=== PATIENT | male | born 1960 | race Hispanic/Latino ===

== ENCOUNTER → 2020-04-15 | Day surgery (SDC) | payer OTHER ==
[~2020-04-15] MED LIST: ATORVASTATIN CA10 MG PO; FENTANYL CITRATE/PF 100MCG/2 ML INJ ONE; GLUCAGON FOR INJ 1 MG VIAL ONE; HYDROCHLOROTHIA25 MG PO; HYOSCYAMINE 0.125 MG TAB ONE; LIDOCAINE HCL 2% LOCAL INJ 5 ML SDV VIAL INJ ONE; LISINOPRIL10 MG PO; MIDAZOLAM HCL 2 MG/2 ML VIAL ONE; PROPOFOL IV EMULSION 10 MG/ML 20 ML VIAL ONE
--- OUTSIDE RECORDS SUMMARY | 2020-04-15 10:41 | XMS REPORT ---
Author Author [facility] t Organization [facility] Address [address] [place] [address] Phone Unavailable Care Team Providers Care Store Stocker Name Role Phone Unavailable Unavailable Payers Payer Name Policy Type Policy Number Effective Date Expiration Date S ource Problems This patient has no known problems. Allergies, Adverse Reactions, Alerts Allergy Name Allergy Type Status Severity Reaction(s) Onset Date Inacti ve Date Treating Clinician Comments Source No Known Allergies DA Active U 2019-05-02 00:00:00 [facility] Medications This patient has no known medications. Procedures This patient has no known procedures. Results Test Description Test Time Test Comments Results Result Comments Source BASIC METABOLIC PANEL 2019-05-03 13:13:00 Test Item SODIUM (test code = NA) 142 mmol/L 134-147 N POTASSIUM (test code = K) 4.3 mmol/L 3.4-5.0 N CHLORIDE (test code = CL) 99 mmol/L 100-108 L CARBON DIOXIDE (test code = CO2) 39 mmol/L 21-32 H ANION GAP (test code = GAP) 4.0 GAP calc 4.0-15.0 N GLUCOSE (test code = GLU) 150 MG/DL 70-110 H BLOOD UREA NITROGEN (test code = BUN) 20 MG/DL 7-18 H GLOMERULAR FILTRATION RATE (test code = GFR) >=60 max estimate estG FR >60 CREATININE (test code = CREAT) 0.9 MG/DL 0.8-1.3 N CALCIUM (test code = CA) 8.7 MG/DL 8.5-10.1 N LIPID PROFILE (CORONARY RISK)2019-05-03 13:13:00* Test Item Value Reference Range Interpretation Comments TRIGLYCERIDES (test code = TRIG) 61 MG/DL 0-150 N CHOLESTEROL (test code = CHOL) 130 MG/DL 133-200 L CHOLESTEROL/HDL RATIO (test code = CHOLHDL) 3.42 RATIO >0 HDL CHOLESTEROL (test code = HDL) 38 MG/DL 40-59 L NON-HDL CHOLESTEROL (test code = NHDL) 92 mg/dL <130 LIPOPROTEIN LDL (test code = LDL) 88 MG/DL 0-129 N LDL/HDL (test code = LDL/HDL) 2.31 Ratio 1.48-3.22 Avg N VITAMIN [id number] 13:13:00* Test Item Value Reference Range Interpretation Comments VITAMIN B12 (test code = VITB12) 691 PG/ML 183-986 N FOLIC [id number] 13:13:00* Test Item Value Reference Range Interpretation Comments FOLIC ACID (test code = FOL) 8.00 NG/ML 3.10-17.50 N T4 [id number] 13:13:00* Test Item Value Reference Range Interpretation Comments T4 FREE (test code = T4F) 0.88 NG/DL 0.89-1.76 L THYROID STIMULATING [id number] 13:13:00* Test Item Value Reference Range Interpretation Comments THYROID STIMULATING HORMONE (test code = TSH) 0.642 mcIU/ML 0.340-4 .820 N BASIC METABOLIC [id number] 11:56:00* Test Item Value Reference Range Interpretation Comments SODIUM (test code = NA) 142 mmol/L 134-147 N POTASSIUM (test code = K) 4.3 mmol/L 3.4-5.0 N CHLORIDE (test code = CL) 99 mmol/L 100-108 L CARBON DIOXIDE (test code = CO2) 39 mmol/L 21-32 H ANION GAP (test code = GAP) 4.0 GAP calc 4.0-15.0 N GLUCOSE (test code = GLU) 150 MG/DL 70-110 H BLOOD UREA NITROGEN (test code = BUN) 20 MG/DL 7-18 H GLOMERULAR FILTRATION RATE (test code = GFR) estGFR >60 CREATININE (test code = CREAT) MG/DL 0.8-1.3 CALCIUM (test code = CA) 8.7 MG/DL 8.5-10.1 N LIPID PROFILE (CORONARY RISK)2019-05-03 11:56:00* Test Item Value Reference Range Interpretation Comments TRIGLYCERIDES (test code = TRIG) MG/DL 0-150 CHOLESTEROL (test code = CHOL) MG/DL 133-200 CHOLESTEROL/HDL RATIO (test code = CHOLHDL) RATIO >0 HDL CHOLESTEROL (test code = HDL) MG/DL 40-59 NON-HDL CHOLESTEROL (test code = NHDL) mg/dL <130 LIPOPROTEIN LDL (test code = LDL) MG/DL 0-129 LDL/HDL (test code = LDL/HDL) Ratio 1.48-3.22 Avg VITAMIN [id number] 11:56:00* Test Item Value Reference Range Interpretation Comments VITAMIN B12 (test code = VITB12) PG/ML 183-986 FOLIC [id number] 11:56:00* Test Item Value Reference Range Interpretation Comments FOLIC ACID (test code = FOL) NG/ML 3.10-17.50 T4 [id number] 11:56:00* Test Item Value Reference Range Interpretation Comments T4 FREE (test code = T4F) NG/DL 0.89-1.76 THYROID STIMULATING [id number] 11:56:00* Test Item Value Reference Range Interpretation Comments THYROID STIMULATING HORMONE (test code = TSH) mcIU/ML 0.340-4. 820 GLYCOSYLATED HEMOGLOBIN [id number] 11:35:00* Test Item Value Reference Range Interpretation Comments GLYCOSYLATED HEMOGLOBIN (HA1C) (test code = GLYHGB) 5.4 % A1C 4. 2-6.3 N ESTIMATED AVERAGE GLUCOSE (test code = EAG) 108 MG/DLest CBC W/AUTO [id number] 10:50:00* Test Item Value Reference Range Interpretation Comments WHITE BLOOD CELL (test code = WBC) 16.4 K/mm3 3.5-11.0 H RED BLOOD CELL (test code = RBC) 5.44 M/mm3 4.70-6.10 N HEMOGLOBIN (test code = HGB) 16.7 G/DL 12.3-15.9 H HEMATOCRIT (test code = HCT) 55.3 % 35.8-46.7 H MEAN CELL VOLUME (test code = MCV) 101.7 Fl 86.3-98.9 H MEAN CELL HGB (test code = MCH) 30.7 pg 28.9-34.4 N MEAN CELL HGB CONCETRATION (test code = MCHC) 30.2 G/DL 32.1-34. 5 L RED CELL DISTRIBUTION WIDTH (test code = RDW) 18.3 SD 11.5-14. 5 H PLATELET COUNT (test code = PLT) 118.0 K/mm3 150-450 L MEAN PLATELET VOLUME (test code = MPV) 11.70 fL 7.0-9.6 H NEUTROPHIL % (test code = NT%) 91.4 % 40-76 H LYMPHOCYTE % (test code = LY%) 3.8 % 20.5-51.1 L MONOCYTE % (test code = MO%) 4.6 % 1.7-9.3 N EOSINOPHIL % (test code = EO%) 0.1 % 0.0-6.0 N BASOPHIL % (test code = BA%) 0.1 % 0.0-2.0 N NEUTROPHIL # (test code = NT#) 14.96 K/mm3 1.8-7.6 H LYMPHOCYTE # (test code = LY#) 0.6 K/mm3 0.6-3.0 N MONOCYTE # (test code = MO#) 0.8 K/mm3 0.2-1.5 N EOSINOPHIL # (test code = EO#) 0.0 K/mm3 0.0-0.4 N BASOPHIL # (test code = BA#) 0.0 K/mm3 0.0-0.2 N MANUAL DIFF REQUIRED (test code = MDIFF) NO DIFF/SCN CRITERIA [id number] 20:51:00* Test Item Value Reference Range Interpretation Comments TROPONIN-I (test code = TROPI) < 0.015 NG/ML 0.000-0.045 N Negative: </= 0.045 Positive: >/= 0.046 Correlation with serial results, other cardiac markers, and clinical findings is necessary to determine the clinical significance of this result. Quantitative results using different methodologies should not be compared to one another as numerical results may varyby method. Completed by Nursing: JANNET SOTO [id number] 19:40:00 Name: MAXINE CANSECOAD [facility] ED : 1960 Age/S: 58 / M [address] [facility] [place] Unit #: [id number] Loc: [place] [address] Phys: Karen Remy MD Acct: [id number] Di s Date: Status: ADM IN PHONE #: Exam Date: 05/02/20191914 FAX #: Reason: R/O DVT EXAMS: CPT: [id number] DUP VEIN MANNY 13986 C3 TIME OF STUDY: 05/02/2019 6:01 PM REASON FOR EXAM: R/O DVT COMPARISON: None. TECHNIQUE: Doppler, mc-scale and color-flow imaging of the bilateral lower extremity venous system was performed. FINDINGS: The common femoral vein, superficial femoral vein, profunda femoris, and popliteal veins are normal in appearance. The vessels show normal compressibility, color flow and doppler augmentation. The de ep calf veins demonstrate no distinct intraluminal thrombus. IM PRESSION: 1. No evidence of deep venous thrombosis. Negative venous Doppler of the bilateral lower extremity. Electronic ally Signed by Yolette Trejo on 05/02/2019 at 1940 Rep orted and signed by: Jose Trejo M.D. CC: Corey Abad MD ; Sandra Remy MD Technologist: Joyce Stone RDMS Trnscb Date/Time: 05/02/2019 (1939) [email or web address] PAGE 1 Signed Report Name: LOVE CANSECOJENNIFER MAURICE Harper : 1960 Age/S: 58 / M [address] [address] [place] Unit #: [id number] Loc: [place] [address] Phys: Sandra Remy MD Acct: [id number] Dis Date: Status: ADM IN PHONE #: [phone] Exam Date: 05/02/20191914 FAX #: Reason: R/O DVT EXAMS: CPT: [id number] DU P VEIN MANNY [address] <Continued> Orig Print D/T: S: 05/02/2019 (1942) Probe: PAGE 2 Signed Report - CTA CHEST FOR [id number] 17:49:00 Name: HARLEENJAY MAURICE Harper : 1960 Age/S: 58 / M [address] [address] [place] Unit #: [id number] Loc: [place] [address] Phys: Sandra Remy MD Acct: [id number] Dis Date: Status: ADM IN PHONE #: [phone] Exam Date: 05/02/20191732 FAX #: Reason: SOB EXAMS: CPT: [id number] [place] [address] Site ID: [id number] EXAMINATION: CTA chest. Technique: Axial images with coronal and sagittal reconstructions with MIP technique are performed of chest with angiogram protocol. 100 mL of Isovue-300 administered intravenously. One or more of the following radiation dose reduction techniques was used: automated exposure control, adjustment of mA and/or KV according to patient size, and/or utilization of iterative reconstruction technique. HISTORY: SOB. COMPARISON: None. FIN DINGS: The pulmonary arteries are well-opacified with no Baptiste made of str eak artifacts and mild breathing motion which could obscure a subtle abnormality. There is a filling defect involving the posterior segment of the right lower lobe compatible with pulmonary embolism. No other defin ite segmental or subsegmental emboli are seen. The lobar and main pulmona ry arteries are better evaluated and demonstrate no pulmonary embolism. T he thoracic aorta is normal in caliber. The heart size is normal. No eff usion or pneumothorax. There is a borderline size 1 cm infracarina l lymph nodes. No significantly enlarged mediastinal, hilar or axillary l ymph nodes are seen otherwise. 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 No herniation of the stomach is seen. The lungs demonstrate minimal dependent atelectasis with no significant consolidati on, mass or suspicious nodule. There is minimal perihilar septal thickeni ng could relate to slight vascular congestion. The osseous s tructures appear grossly unremarkable. IMPRESSION: 1. S mall pulmonary focal embolism involving the posterior segment of the rig ht lower lobe. The central pulmonary arteries are patent. PAGE 1 Signed Report (CONTINUED) Name: LOVE CANSECOTEJINDER MARCUM [facility] Rosario : 1960 Age/S: 58 / M [address] [address] [place] Unit #: [id number] Loc: [place] [address] Phys: Sandra Remy MD Acct: [id number] Dis Date: Status: ADM IN PHONE #: [phone] Exam D ate: 05/02/2019 1733 FAX #: Reason: SOB EXAMS: CPT: [id number] [place] [address] <Continued> 2. Minimal septal thickening in the lungs mid zone may relate to slight vascular congestion. The findings were discussed with Shannan, the nurse taking care of the patient at 5:45 PM. at 1749 Reported and signed by: Adriel Montejo MD CC: Corey Abad MD; Sandra Remy MD Technologist:MICHELLE MARTIN, RT(R)(CT)(MR) CTDI: DLP: Trnscb Date/Time: 05/02/2019 (1749) [email or web address] Orig Print D/T: S: 05/02/2019 (7732) PAGE 2 Signed Report [id number] 17:18:00* Test Item Value Reference Range Interpretation Comments TROPONIN-I (test code = TROPI) < 0.015 NG/ML 0.000-0.045 N Negative: </= 0.045 Positive: >/= 0.046 Correlation with serial results, other cardiac markers, and clinical findings is necessary to determine the clinical significance of this result. Quantitative results using different methodologies should not be compared to one another as numerical results may varyby method. Completed by Nursing: [id number] 15:12:00* Test Item Value Reference Range Interpretation Comments ARTERIAL BLOOD GAS PH (test code = PHA) 7.38 pH units 7.35-7.45 N ARTERIAL BLOOD GAS PCO2 (test code = PCO2A) 62 mmHg 35-45 H ARTERIAL BLOOD GAS PO2 (test code = PO2A) 98 mmHg 80-100 N BICARBONATE TOTAL HCO3 (test code = HCO3) 35.6 mmol/L 22.0-26.0 H BASE EXCESS (test code = RADHA) 7.7 mmol/L -3.0-3.0 H ABG O2 SATURATION (test code = SATA) 98 % 90-100 N FIO2 (test code = FIO2A) 35 % e 21-100 N ABG VENT MODE (test code = MODEA) Nasal Cannula Descript Vent Mode ABG SITE (test code = SITEA) Left Radial ARTKIT DESCRIPTION MODIFIED JEAN CLAUDE'S (test code = MODALL) Yes Circ.CHK POSITIVE TOTAL HGB (test code = THB) 17.0 GRAM/DL 12.0-18.0 N HGB O2 SAT (test code = HBOSAT) 93.9 % (miracle) 95.0-100.0 L CARBOXYHEMOGLOBIN (test code = HOHGBT) 3.1 % 0.5-1.5 H METHEMOGLOBIN (test code = METHGB) 0.7 % 0.0-0.0 H COMPREHENSIVE METABOLIC [id number] 14:08:00* Test Item Value Reference Range Interpretation Comments SODIUM (test code = NA) 143 mmol/L 134-147 N POTASSIUM (test code = K) 3.7 mmol/L 3.4-5.0 N CHLORIDE (test code = CL) 102 mmol/L 100-108 N CARBON DIOXIDE (test code = CO2) 38 mmol/L 21-32 H ANION GAP (test code = GAP) 3.0 GAP calc 4.0-15.0 L GLUCOSE (test code = GLU) 123 MG/DL 70-110 H BLOOD UREA NITROGEN (test code = BUN) 20 MG/DL 7-18 H GLOMERULAR FILTRATION RATE (test code = GFR) >=60 max estimate estG FR >60 CREATININE (test code = CREAT) 0.9 MG/DL 0.8-1.3 N TOTAL PROTEIN (test code = PROT) 7.8 G/DL 6.4-8.2 N ALBUMIN (test code = ALB) 3.3 G/DL 3.4-5.0 L GLOBULIN (test code = GLOB) 4.5 GM/dL ALBUMIN/GLOBULIN RATIO (test code = A/G) 0.7 RATIO 1.2-2.2 L CALCIUM (test code = CA) 8.6 MG/DL 8.5-10.1 N BILIRUBIN TOTAL (test code = BILT) 1.50 MG/DL 0.2-1.2 H SGOT/AST (test code = AST) 23 Unit/L 15-37 N SGPT/ALT (test code = ALT) 41 Unit/L 12-78 N ALKALINE PHOSPHATASE TOTAL (test code = ALKP) 76 Unit/L 50-136 N Completed by Nursing: NONT PRO-BRAIN NATRIURETIC [id number] 14:08:00* Test Item Value Reference Range Interpretation Comments NT PRO-BRAIN NATRIURETIC PEPTI (test code = PROBNP) 217 PG/ML 0- 100 H Completed by Nursing: [id number] 14:08:00* Test Item Value Reference Range Interpretation Comments TROPONIN-I (test code = TROPI) < 0.015 NG/ML 0.000-0.045 N Negative: </= 0.045 Positive: >/= 0.046 Correlation with serial results, other cardiac markers, and clinical findings is necessary to determine the clinical significance of this result. Quantitative results using different methodologies should not be compared to one another as numerical results may varyby method. Completed by Nursing: NOCOMPREHENSIVE METABOLIC [id number] 14:00:00* Test Item Value Reference Range Interpretation Comments SODIUM (test code = NA) 143 mmol/L 134-147 N POTASSIUM (test code = K) 3.7 mmol/L 3.4-5.0 N CHLORIDE (test code = CL) 102 mmol/L 100-108 N CARBON DIOXIDE (test code = CO2) 38 mmol/L 21-32 H ANION GAP (test code = GAP) 3.0 GAP calc 4.0-15.0 L GLUCOSE (test code = GLU) 123 MG/DL 70-110 H BLOOD UREA NITROGEN (test code = BUN) 20 MG/DL 7-18 H GLOMERULAR FILTRATION RATE (test code = GFR) estGFR >60 CREATININE (test code = CREAT) MG/DL 0.8-1.3 TOTAL PROTEIN (test code = PROT) G/DL 6.4-8.2 ALBUMIN (test code = ALB) G/DL 3.4-5.0 GLOBULIN (test code = GLOB) GM/dL ALBUMIN/GLOBULIN RATIO (test code = A/G) RATIO 1.2-2.2 CALCIUM (test code = CA) 8.6 MG/DL 8.5-10.1 N BILIRUBIN TOTAL (test code = BILT) MG/DL 0.2-1.2 SGOT/AST (test code = AST) Unit/L 15-37 SGPT/ALT (test code = ALT) Unit/L 12-78 ALKALINE PHOSPHATASE TOTAL (test code = ALKP) Unit/L 50-136 Completed by Nursing: NONT PRO-BRAIN NATRIURETIC [id number] 14:00:00* Test Item Value Reference Range Interpretation Comments NT PRO-BRAIN NATRIURETIC PEPTI (test code = PROBNP) PG/ML 0- 100 Completed by Nursing: [id number] 14:00:00* Test Item Value Reference Range Interpretation Comments TROPONIN-I (test code = TROPI) NG/ML 0.000-0.045 Completed by Nursing: NOCBC W/AUTO [id number] 13:51:00* Test Item Value Reference Range Interpretation Comments WHITE BLOOD CELL (test code = WBC) 8.4 K/mm3 3.5-11.0 N RED BLOOD CELL (test code = RBC) 5.28 M/mm3 4.70-6.10 N HEMOGLOBIN (test code = HGB) 16.1 G/DL 12.3-15.9 H HEMATOCRIT (test code = HCT) 51.9 % 35.8-46.7 H MEAN CELL VOLUME (test code = MCV) 98.3 Fl 86.3-98.9 N MEAN CELL HGB (test code = MCH) 30.5 pg 28.9-34.4 N MEAN CELL HGB CONCETRATION (test code = MCHC) 31.0 G/DL 32.1-34. 5 L RED CELL DISTRIBUTION WIDTH (test code = RDW) 18.0 SD 11.5-14. 5 H PLATELET COUNT (test code = PLT) 91.0 K/mm3 150-450 L MEAN PLATELET VOLUME (test code = MPV) 10.40 fL 7.0-9.6 H NEUTROPHIL % (test code = NT%) 82.6 % 40-76 H LYMPHOCYTE % (test code = LY%) 8.5 % 20.5-51.1 L MONOCYTE % (test code = MO%) 6.3 % 1.7-9.3 N EOSINOPHIL % (test code = EO%) 2.2 % 0.0-6.0 N BASOPHIL % (test code = BA%) 0.4 % 0.0-2.0 N NEUTROPHIL # (test code = NT#) 6.91 K/mm3 1.8-7.6 N LYMPHOCYTE # (test code = LY#) 0.7 K/mm3 0.6-3.0 N MONOCYTE # (test code = MO#) 0.5 K/mm3 0.2-1.5 N EOSINOPHIL # (test code = EO#) 0.2 K/mm3 0.0-0.4 N BASOPHIL # (test code = BA#) 0.0 K/mm3 0.0-0.2 N MANUAL DIFF REQUIRED (test code = TREVOR) NO DIFF/SCN CRITERIA - XR CHEST 2 [id number] 13:22:00 Name: JAY CANSECO [facility] ED : 1960 Age/S: 58 / M [address] [address] [place] Unit #: [id number] Loc: [place] [address] Phys: Santiago Ying MD Acct: [id number] Dis Date: Status: PRE ER PHONE #: [phone] Exam Date: 05/02/2019 1312 FAX #: Reason: cough for 3 weeks EXAMS: CPT: [id number] XR CHEST 2 V 98895 Fluoro Time: DAP (Gy m2): Air Kerma (mGy): EXAM: - XR CHEST 2 V HISTORY: cough for 3 weeks Location code:C3 COMPARISON: None available time of interpretation. FINDINGS: 2 PA and lateral view of the chest is provided. The cardiac silhouette and pulmonary vasculature are mildly engorged. The lungs are clear of focal consolidation. No effusion, pneumothorax, or acute osseous abnormality. IMPRESSION: The cardiac silhouette and pulmonary vasculature are mildly engorged. at 1322 Reported and signed by: Nito Vergara MD CC: Santiago Ying MD PAGE 1 Signed Report Name: JAY CANSECO [facility] ED : 1 12/15/1959 Age/S: 58 / M [address] [address] [place] Unit #: [id number] Loc: [place] [address] Phys: Santiago Ying MD Acct: [id number] Dis D ate: Status: PRE ER PHONE #: Exam Date: 05/02/2019 1312 FAX #: Reason: cough for 3 weeks EXAMS: CPT: [id number] XR CHEST 2 V 91066 Fluoro Time: DAP (Gy m2): Air Kerma (mGy): <Continued> Technologist: Paola Almodovar RT(R) Trnscb Date/Time: 05/02/2019 (1322) [id number] Orig Print D/T: S: 05/02/2019 (8559) PAGE 2 Signed Report
--- NOTE | 2020-04-15 20:39 | Operative Report ---
DATE OF PROCEDURE: 04/15/2020 SURGEON: Can Rojas MD PROCEDURE: Colonoscopy with polypectomy. INDICATIONS FOR COLONOSCOPY: Colorectal cancer screening. MEDICATIONS: The patient was done under MAC, please see anesthesiologist's note. PROCEDURE IN DETAIL: With the patient in left lateral decubitus position, a flexible fiberoptic Olympus colonoscope was inserted into the rectum with ease and advanced all the way to the cecum. Diverticular disease was noted pretty much throughout, but it was more prominent in the left colon. The scope was then withdrawn slowly. Mucosa overlying the cecum appeared to be within normal limits. Other than for diverticulosis, the ascending and the transverse appeared to be within normal limits. One minute polyp was hot biopsied from the descending colon. Two minute polyps were hot biopsied from the sigmoid colon. The rectum appeared to be within normal limits. The scope was then retroflexed into the distal rectum. Small internal hemorrhoids were noted, none of which was actively bleeding. The scope was then straightened out, it was subsequently withdrawn. The patient tolerated the procedure well. IMPRESSION: 1. Pandiverticulosis. 2. Descending colon polyp, hot biopsied. 3. Sigmoid colon polyps x2, hot biopsied. 4. Internal hemorrhoids, none actively bleeding. PLAN: Follow up histology. Initiate high-fiber, low-fat diet. Initiate high-fiber supplement. The patient might benefit from a followup colonoscopy in 3 to [address] [facility]/KIRSTEN /[id number] cc: Michelle Nicole MD
== END | disposition home or self-care (01) ==
LOC: OR 10:25
PROVIDERS: ATTEND Internal Medicine Gastroenterology
DX: Z12.11 Encounter for screening for malignant neoplasm of colon (principal); K63.5 Polyp of colon; K57.30 Diverticulosis of large intestine without perforation or abscess without bleeding; K64.8 Other hemorrhoids; K31.89 Other diseases of stomach and duodenum; G47.33 Obstructive sleep apnea (adult) (pediatric); E66.01 Morbid (severe) obesity due to excess calories; K42.9 Umbilical hernia without obstruction or gangrene; I10 Essential (primary) hypertension; Z01.810 Encounter for preprocedural cardiovascular examination; Z01.812 Encounter for preprocedural laboratory examination; Z11.59 Encounter for screening for other viral diseases; Z68.42 Body mass index [BMI] 45.0-49.9, adult; Z86.711 Personal history of pulmonary embolism
CPT/HCPCS: 45384; 87635; 93005; J1610; J2001; J2250; J2704; J3010